=== PATIENT | female | born 1990 | race Caucasian/White ===

== ENCOUNTER → 2023-07-20 13:33 | Outpatient (BNVA) | payer BC, SELFPAY | PROVIDERS: Family Provider Family Medicine; PCP Family Medicine; Visit Provider Family Medicine | DX: E03.9 Hypothyroidism, unspecified (principal); F41.9 Anxiety disorder, unspecified; E11.9 Type 2 diabetes mellitus without complications | CPT/HCPCS: 84439; 84443 ==

== ENCOUNTER 2023-11-16 17:15 | Emergency (ER) | payer BC, SELFPAY ==
[2023-11-16 17:24] VITALS: BP 121/76; PULSE 95; RESP 16; TEMP 36.8; O2SAT 100; BMI 20.5
--- NOTE | 2023-11-16 18:14 | ED_ITS ---
HPI - Animal Bite General: Chief Complaint: Animal Bite Stated Complaint: dog bite on right hand first finger Time Seen by Provider: 11/16/23 17:15 Source: patient Mode of arrival: ambulatory Limitations: no limitations History of Present Illness: Patient is a 32-year-old female present to the emergency department due to a dog bite to right index finger prior to arrival. States that she did not know whose dog this was, was fighting/playing with her own dogs when it caused a small superficial bite to the finger. No active bleeding, she is reporting pain to the finger. States she was not going to come in but after googling rabies states that she came in for evaluation. The dog was noted to not be acting strange, no seizure-like activity or abnormal aggression, stating bite was accidental. Unknown vaccination status of the dog, not immediately ready to observe the dog for any abnormal symptoms. Patient states her tetanus is not up-to-date. No fever, distal neurovascular deficits, or other symptoms to report at this time. MD complaint: animal bite Onset (ago): minute(s) Animal: dog Description of animal: unknown animal and immunizations unknown Mechanism: bite Location - Extremities: Right: hand (Pointer finger) Context: playing with animal Associated symptoms: Reports no associated symptoms; Deny chills, fever(s) or headache(s) Treatments prior to arrival: wound dressing(s) (Bandage) Related Data Previous Rx's Medication Instructions Recorded alprazolam 0.25 mg tablet 0.25 mg PO BID PRN anxiety #60 tabs 08/17/23 levothyroxine 137 mcg tablet See Rx Instructions .Route 08/17/23 .COMPLEX #30 tabs paroxetine HCl 20 mg tablet (Paxil) 20 mg PO DAILY #30 tabs 08/17/23 amoxicillin 875 mg-potassium 1 tab PO BID 10 days #20 tabs 11/16/23 clavulanate 125 mg tablet Allergies Allergy/AdvReac Type Severity Reaction Status Date / Time No Known Allergies Allergy Unverified 05/06/22 12:38 Review of Systems General: Reports: 10 or more systems reviewed and unremarkable except in HPI and below Const: Denies: fever(s) or chills Card: Denies: chest pain Resp: Denies: dyspnea GI: Denies: abdominal pain, nausea, vomiting or diarrhea Musc: Denies: extremity pain or joint pain Skin/Breast: Reports: skin pain, skin tenderness and new lesions (Animal bite to right pointer finger); Denies: rash Neuro: Denies: headache(s) PFSH ED PFSH: Medical History Anxiety Hypothyroid Social History Smoking and tobacco/nicotine status: never used tobacco/nicotine Physical Exam Const: COMMON NORMALS: no acute distress, average body habitus, patient oriented x3, no limitations, healthy appearing, alert and well nourished HENMT: COMMON NORMALS: normocephalic and atraumatic HEAD & SCALP: normocephalic and atraumatic Neck/C-Spine: COMMON NORMALS: full ROM, no lymphadenopathy, supple and no meningeal signs Resp: COMMON NORMALS: normal respiratory effort, No use of accessory muscles and clear to auscultation bilaterally AUSCULTATION: clear to auscultation bilaterally Cardio: COMMON NORMALS: regular rate and regular rhythm RATE: regular rate RHYTHM: regular rhythm Extremity: COMMON NORMALS: full ROM and capillary refill normal NARRATIVE EXTREMITY EXAM: Distal neurovascular status intact and good strength with the right hand. No bony joint tenderness. Neuro: COMMON NORMALS: patient oriented x3 SENSORIUM/ORIENTATION: Yes alert MENINGEAL SIGNS: Yes no meningeal signs Skin: COMMON NORMALS: turgor normal NARRATIVE SKIN EXAM: There is a small, superficial appearing abrasion to the palmar aspect of the rig ht pointer finger with no active bleeding. No puncturing component observed at this time. GENERAL SKIN EXAM: turgor normal Course Vital Signs: Vital signs: Vital Signs Temperature 98.2 F 11/16/23 17:24 Pulse Rate 95 11/16/23 17:24 Respiratory Rate 16 11/16/23 17:24 Blood Pressure 121/76 11/16/23 17:24 Pulse Oximetry 100 11/16/23 17:24 Oxygen Delivery Me thod Room Air 11/16/23 17:24 MDM - Animal Bite Medical Decision Making Patient presented after unknown dog bit her on her finger. On examination this did appear to be more of a grazing wound as there was no puncturing component, patient was having questions about potential rabies vaccination after she/family googled symptoms/characteristics. Did offer starting immunoglobulin and rabies vaccination series, though patient is stating she would rather not start this at this time as she has a severe issue with needles. We discussed risks of not going forward with vaccination series, she understands. Will update her tetanus today and started on Augmentin. She is heavily encouraged to identify the dog and quarantine it/monitor for any abnormal signs/symptoms, and encouraged to return to the emergency department with any new or concerning symptoms and may begin rabies vaccination series if she changes her mind. No radiology studies performed this visit Discharge Plan Discharge Patient Disposition: Home Clinical Impression: Dog bite Condition: Stable Prescriptions: New amoxicillin-pot clavulanate 875-125 mg tablet 1 tab PO BID 10 Days Qty: 20 0RF No Action levothyroxine 137 mcg tablet See Rx Instructions .ROUTE .COMPLEX Qty: 30 11RF Dose Instruction: TAKE 1 TABLET BY MOUTH ONCE DAILY DIRECTED Rx Instructions: TAKE 1 TABLET BY MOUTH ONCE DAILY DIRECTED paroxetine HCl [Paxil] 20 mg tablet 20 mg PO DAILY Qty: 30 11RF alprazolam 0.25 mg tablet 0.25 mg PO BID PRN (Reason: anxiety) Qty: 60 5RF Discharge Orders: Discharge ED (Routine); Ordered 11/16/23 Ordered By: Jermain Aguilera Referrals: Nilesh James MD [Family Provider] - Lanre Seo MD [Primary Care Provider] - Discharge Diet: Usual diet Discharge Activity: Increase activity as tolerated Patient Instructions: Animal Bite (ED), Pain Management Activity Restrictions/Additional Instructions: Take Augmentin as prescribed. Your tetanus was updated today 11/16/2023. Please keep area open to dry, may apply a topical Neosporin or bacitracin. Also apply ice, take Tylenol/ibuprofen for any pain. Follow-up with your primary doctor as needed. 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
[2023-11-16] MEDS: tetanus-dipt-pertussis 0.5 mL SDV IM (18:32)
[2023-11-16 18:40] VITALS: BP 136/80; PULSE 82; O2SAT 99
== END 2023-11-16 18:44 | disposition home or self-care (01) ==
PROVIDERS: Emergency Provider Physician Assistant; Family Provider Family Medicine; PCP Family Medicine
DX: S60.470A Other superficial bite of right index finger, initial encounter (principal); W54.0XXA Bitten by dog, initial encounter; Z23 Encounter for immunization
CPT/HCPCS: 90471; 90715; 99283

== ENCOUNTER → 2024-03-07 10:12 | Outpatient (BNVA) | payer BC, SELFPAY | PROVIDERS: Family Provider Family Medicine; PCP Family Medicine; Visit Provider Family Medicine | DX: E03.9 Hypothyroidism, unspecified (principal); F41.9 Anxiety disorder, unspecified | CPT/HCPCS: 84439; 84443 ==